=== PATIENT | male | born 1960 | race Caucasian/White ===

== ENCOUNTER 2017-08-20 09:20 | Inpatient (IN) | payer MEDICAID ==
[~2017-08-20] VITALS: Ht 175.3 cm; Wt 104.3 kg
[2017-08-20 09:20] VITALS: BP_SYST 150
[2017-08-20] MEDS ORDERED: HYDROcodone/ACETAMIN 10-325 MG TAB PO ONE (10:00)
[2017-08-20] MEDS ORDERED: IBUPROFEN 800 MG TABLET PO ONE (10:00)
[2017-08-20 10:02] LABS: BASOPHILS # (AUTO) 0.1 K/uL (0.0-0.2); BASOPHILS % (AUTO) 0.6 % (0.0-2.0); EOSINOPHILS # (AUTO) 0.4 K/uL (0.0-0.4); EOSINOPHILS % (AUTO) 3.6 % (0.0-4.0); HEMATOCRIT 52.6 % (36-54); HEMOGLOBIN 16.9 g/dL (14.0-18.0); LYMPHOCYTES # (AUTO) 1.9 K/uL (1.0-5.5); LYMPHOCYTES % (AUTO) 19.8 % (20.5-51.5); MEAN CORPUSCULAR HEMOGLOBIN 29 pg (27-31); MEAN CORPUSCULAR HGB CONC 32 % (32-36); MEAN CORPUSCULAR VOLUME 90 fL (79.0-98.0); MONOCYTES # (AUTO) 0.6 K/uL (0.0-1.0); MONOCYTES % (AUTO) 6.3 % (1.7-9.3); NEUTROPHILS # (AUTO) 6.8 K/uL (1.8-7.7); NEUTROPHILS % (AUTO) 69.7 % (40.0-70.0); PLATELET COUNT (AUTO) 261 K/uL (130-430); RED BLOOD CELL COUNT(AUTO) 5.83 MIL/uL (4.2-6.2); RED CELL DISTRIBUTION WIDTH 12.8 % (9.0-15.0); WHITE BLOOD COUNT (AUTO) 9.8 K/uL (4.8-10.8)
[2017-08-20 10:10] LABS: BILIRUBIN,URINE NEGATIVE (NEGATIVE); BLOOD, URINE NEGATIVE (NEGATIVE); CLARITY/URINE SL HAZY (CLEAR); COLOR,URINE YELLOW (YELLOW); GLUCOSE,URINE NEGATIVE (NEGATIVE); KETONES,URINE NEGATIVE (NEGATIVE); LEUKOCYTE ESTERASE ,URINE NEGATIVE (NEGATIVE); NITRITE, URINE NEGATIVE (NEGATIVE); PH,URINE 5.5 (5.0-8.0); PROTEIN URINE TRACE (NEGATIVE); UROBILINOGEN,URINE 0.2 (0.2-1.0)
[2017-08-20 10:17] LABS: CALCIUM 8.9 mg/dL (8.4-11.0); CREATININE 1.16 mg/dL (0.55-1.30); POTASSIUM 3.8 mmol/L (3.5-5.1)
[2017-08-20 10:22] LABS: ALBUMIN 4.2 g/dL (3.4-4.8); TOTAL BILIRUBIN 0.4 mg/dL (0.0-1.0)
[2017-08-20 10:33] LABS: INR 1.1 (0.80-1.20); PROTHROMBIN TIME 10.7 SECS (9.5-12.5)
[2017-08-20] MEDS ORDERED: PIPERACILLIN/TAZO 3.375 GM in NS 50 ML IV ONE (12:30)
[2017-08-20] MEDS ORDERED: PIPERACILLIN/TAZOBACTAM 3.375 GM/VIAL (ZOSYN) IV ONE (12:49)
[2017-08-20] MEDS ORDERED: ONDANSETRON HCL 4 MG/2 ML VIAL IVP ONE (13:00)
[2017-08-20] MEDS ORDERED: KETOROLAC TROMETHAMINE 30 MG VIAL IVP ONE (13:00)
[2017-08-20] MEDS ORDERED: D5/0.45 NS 1,000 ML IV ONE (13:30)
[2017-08-20] MEDS ORDERED: LEVOFLOXACIN 500 MG/D5W 100 ML IV ONE (13:30)
[2017-08-20 14:54] LABS: BASOPHILS # (AUTO) 0.1 K/uL (0.0-0.2); BASOPHILS % (AUTO) 0.6 % (0.0-2.0); EOSINOPHILS # (AUTO) 0.4 K/uL (0.0-0.4); EOSINOPHILS % (AUTO) 4.3 % (0.0-4.0); HEMATOCRIT 49.2 % (36-54); HEMOGLOBIN 16.1 g/dL (14.0-18.0); LYMPHOCYTES # (AUTO) 2.3 K/uL (1.0-5.5); LYMPHOCYTES % (AUTO) 26.9 % (20.5-51.5); MEAN CORPUSCULAR HEMOGLOBIN 29 pg (27-31); MEAN CORPUSCULAR HGB CONC 33 % (32-36); MEAN CORPUSCULAR VOLUME 89 fL (79.0-98.0); MONOCYTES # (AUTO) 0.7 K/uL (0.0-1.0); MONOCYTES % (AUTO) 7.6 % (1.7-9.3); NEUTROPHILS # (AUTO) 5.2 K/uL (1.8-7.7); NEUTROPHILS % (AUTO) 60.6 % (40.0-70.0); PLATELET COUNT (AUTO) 243 K/uL (130-430); RED BLOOD CELL COUNT(AUTO) 5.53 MIL/uL (4.2-6.2); RED CELL DISTRIBUTION WIDTH 12.8 % (9.0-15.0); WHITE BLOOD COUNT (AUTO) 8.7 K/uL (4.8-10.8)
[2017-08-20 14:59] LABS: CALCIUM 8.5 mg/dL (8.4-11.0); CREATININE 1.11 mg/dL (0.55-1.30); POTASSIUM 4.3 mmol/L (3.5-5.1)
[2017-08-20 15:04] LABS: ALBUMIN 3.8 g/dL (3.4-4.8); TOTAL BILIRUBIN 0.5 mg/dL (0.0-1.0)
[2017-08-20 15:15] VITALS: BP_SYST 168
[2017-08-20] MEDS ORDERED: cloNIDine HCL 0.1 MG TABLET PO PRN ×2 (16:00)
[2017-08-20 20:00] VITALS: BP_SYST 106
[2017-08-20] MEDS ORDERED: HYDROcodone/ACETAMIN 10-325 MG TAB PO SCH (20:00)
[2017-08-20] MEDS ORDERED: amLODIPine BESYLATE 10 MG TABLET PO SCH (20:00)
[2017-08-20] MEDS ORDERED: HYDR-4100 PO (21:21)
[2017-08-20] MEDS ORDERED: AMOX-426 PO (21:22)
[2017-08-20 21:30] VITALS: BP_SYST 147
[2017-08-20 21:47] VITALS: BP_SYST 147
== END 2017-08-20 22:05 | disposition home or self-care (01) | DRG 254 ==
LOC: SED 09:20 → SMU 13:28
DX: K37 Unspecified appendicitis (principal); I10 Essential (primary) hypertension; K40.90 Unilateral inguinal hernia, without obstruction or gangrene, not specified as recurrent; N43.2 Other hydrocele
CPT/HCPCS: 36415; 76870-TC; 80053; 81003; 82150-TC; 83690-TC; 85025; 85610-TC; 85730-TC; 96365; 99285; J1885; J1956; J2405; J2543

== ENCOUNTER 2017-08-23 11:11 | Emergency (ER) | payer MEDICAID ==
[~2017-08-23] VITALS: Ht 177.8 cm; Wt 104.3 kg
[~2017-08-23 11:11] MED LIST: AMOX-426 PO; HYDR-4100 PO
[2017-08-23 11:29] VITALS: BP_SYST 160
[2017-08-23] MEDS ORDERED: PIPERACILLIN/TAZO 3.38 GM in NS 50 ML IV ONE (12:00)
[2017-08-23 12:24] LABS: BASOPHILS # (AUTO) 0.1 K/uL (0.0-0.2); BASOPHILS % (AUTO) 1.8 % (0.0-2.0); EOSINOPHILS # (AUTO) 0.3 K/uL (0.0-0.4); EOSINOPHILS % (AUTO) 3.6 % (0.0-4.0); HEMATOCRIT 52.3 % (36-54); HEMOGLOBIN 17.1 g/dL (14.0-18.0); LYMPHOCYTES # (AUTO) 1.8 K/uL (1.0-5.5); LYMPHOCYTES % (AUTO) 22.9 % (20.5-51.5); MEAN CORPUSCULAR HEMOGLOBIN 29 pg (27-31); MEAN CORPUSCULAR HGB CONC 33 % (32-36); MEAN CORPUSCULAR VOLUME 89 fL (79.0-98.0); MONOCYTES # (AUTO) 0.5 K/uL (0.0-1.0); NEUTROPHILS # (AUTO) 5.3 K/uL (1.8-7.7); NEUTROPHILS % (AUTO) 65.7 % (40.0-70.0); PLATELET COUNT (AUTO) 266 K/uL (130-430); RED BLOOD CELL COUNT(AUTO) 5.89 MIL/uL (4.2-6.2); RED CELL DISTRIBUTION WIDTH 12.6 % (9.0-15.0)
[2017-08-23 12:48] LABS: INR 1.1 (0.80-1.20); PROTHROMBIN TIME 10.9 SECS (9.5-12.5)
[2017-08-23 12:51] LABS: CALCIUM 8.5 mg/dL (8.4-11.0); CREATININE 1.09 mg/dL (0.55-1.30); POTASSIUM 4.3 mmol/L (3.5-5.1)
[2017-08-23 12:55] LABS: ALBUMIN 4.1 g/dL (3.4-4.8); TOTAL BILIRUBIN 0.6 mg/dL (0.0-1.0)
[2017-08-23] MEDS ORDERED: PIPERACILLIN/TAZOBACTAM 3.375 GM/VIAL (ZOSYN) IV ONE (13:55)
[2017-08-23 14:00] VITALS: BP_SYST 154
[2017-08-23 14:11] LABS: BILIRUBIN,URINE NEGATIVE (NEGATIVE); BLOOD, URINE NEGATIVE (NEGATIVE); CLARITY/URINE CLEAR (CLEAR); COLOR,URINE YELLOW (YELLOW); GLUCOSE,URINE NEGATIVE (NEGATIVE); KETONES,URINE NEGATIVE (NEGATIVE); LEUKOCYTE ESTERASE ,URINE NEGATIVE (NEGATIVE); NITRITE, URINE NEGATIVE (NEGATIVE); PH,URINE 5.5 (5.0-8.0); PROTEIN URINE NEGATIVE (NEGATIVE); UROBILINOGEN,URINE 0.2 (0.2-1.0)
== END 2017-08-23 14:00 | disposition home or self-care (01) ==
LOC: SED 11:11
DX: R10.31 Right lower quadrant pain (principal); I10 Essential (primary) hypertension
CPT/HCPCS: 36415; 71010; 74176; 80053; 81003; 83605; 83690; 85025; 85610; 87040; 93005; 96365; 99285; J2543

== ENCOUNTER 2019-03-02 19:48 | Emergency (ER) | payer BC, MEDICAID ==
[~2019-03-02] VITALS: Ht 177.8 cm; Wt 90.7 kg
[2019-03-02 20:00] VITALS: BP_SYST 151
[2019-03-02] MEDS ORDERED: MORPHINE 4 MG/ML INJ. SYRINGE IVP ONE ×2 (21:15→22:00)
[2019-03-02] MEDS ORDERED: ONDANSETRON HCL 4 MG/2 ML VIAL IVP ONE (21:15)
[2019-03-02] MEDS ORDERED: NACL 0.9% 1,000 ML IV ONE (21:15)
[2019-03-02] MEDS ORDERED: KETOROLAC TROMETHAMINE 30 MG VIAL IVP ONE (22:30)
[2019-03-02 23:22] VITALS: BP_SYST 143
== END 2019-03-02 23:22 | disposition home or self-care (01) ==
LOC: SED 19:48
DX: S22.32XA Fracture of one rib, left side, initial encounter for closed fracture (principal); I10 Essential (primary) hypertension; W17.89XA Other fall from one level to another, initial encounter; Y93.89 Activity, other specified; Y92.89 Other specified places as the place of occurrence of the external cause; Y99.8 Other external cause status
CPT/HCPCS: 71045; 71100; 71250; 74176; 96374; 96375; 99284; J1885; J2270; J2405; J7030

== ENCOUNTER 2020-05-12 14:52 | Emergency (ER) | payer BC ==
[~2020-05-12] VITALS: Ht 177.8 cm; Wt 90.7 kg
--- NOTE | 2020-05-12 14:55 | NUR ---
Patient to ER bed 04 to gown for evaluation. Side rails up.
--- NOTE | 2020-05-12 14:57 | NUR ---
Patient arrived in the ED c/o Right groin pain with swollen and descended testes for a few months now. Denied any chest pain or shortness of breath. Denied any fevers, chills, nausea or vomiting. Patient is alert and oriented x4, respirations even and unlabored, speaking in full sentences, and ambulating with a steady gait. VSS, pain level 9/10. Informed of the approximate wait time. Instructed to notify ED staff for any changes in condition or worsening of symptoms while waiting to be seen by an ED provider. Patient verbalized understanding.
[2020-05-12 15:00] VITALS: BP_SYST 163
--- NOTE | 2020-05-12 15:14 | NUR ---
ER RM Arenas at bedside examining patient.
[2020-05-12] MEDS ORDERED: DIPHENHYDRAMINE INJ 50 MG/ML VIAL IVP ONE (15:30)
[2020-05-12] MEDS ORDERED: MORPHINE 4 MG/ML INJ. SYRINGE IVP ONE (15:30)
[2020-05-12] MEDS ORDERED: NACL 0.9% 1,000 ML IV ONE (15:30)
--- NOTE | 2020-05-12 15:34 | NUR ---
Ultrasound done at bedside as ordered by Dr. Arenas. Patient tolerated the procedure well.
--- NOTE | 2020-05-12 15:48 | NUR ---
Urine sample sent to lab as per MD order.
--- NOTE | 2020-05-12 15:59 | NUR ---
senior technical support engineer at bedside collecting blood specimen as ordered by Dr. Arenas. Patient tolerated the procedure well.
[2020-05-12 16:10] LABS: CLARITY/URINE CLEAR (CLEAR); COLOR,URINE YELLOW (YELLOW); GLUCOSE,URINE NEGATIVE (NEGATIVE); KETONES,URINE NEGATIVE (NEGATIVE); PH,URINE 6.5 (5.0-8.0); PROTEIN URINE NEGATIVE (NEGATIVE)
[2020-05-12 16:11] LABS: BILIRUBIN,URINE NEGATIVE (NEGATIVE); NITRITE, URINE NEGATIVE (NEGATIVE)
--- NOTE | 2020-05-12 16:35 | NUR ---
Patient is taken to CT via gurney, in stable condition.
[2020-05-12 16:38] LABS: BASOPHILS % (AUTO) 0.4 % (0.0-2.0); EOSINOPHILS # (AUTO) 0.2 K/uL (0.0-0.4); EOSINOPHILS % (AUTO) 1.8 % (0.0-4.0); HEMATOCRIT 50.2 % (36-54); HEMOGLOBIN 16.6 g/dL (14.0-18.0); LYMPHOCYTES # (AUTO) 1.8 K/uL (1.0-5.5); LYMPHOCYTES % (AUTO) 20.5 % (20.5-51.5); MEAN CORPUSCULAR HEMOGLOBIN 30 pg (27-31); MEAN CORPUSCULAR HGB CONC 33 % (32-36); MEAN CORPUSCULAR VOLUME 90 fL (79.0-98.0); MONOCYTES # (AUTO) 0.6 K/uL (0.0-1.0); MONOCYTES % (AUTO) 6.4 % (1.7-9.3); NEUTROPHILS # (AUTO) 6.1 K/uL (1.8-7.7); NEUTROPHILS % (AUTO) 70.9 % (40.0-70.0); PLATELET COUNT (AUTO) 235 K/uL (130-430); RED BLOOD CELL COUNT(AUTO) 5.59 MIL/uL (4.2-6.2); WHITE BLOOD COUNT (AUTO) 8.6 K/uL (4.8-10.8)
[2020-05-12] MEDS ORDERED: cefTRIAXone 1 GM IVPB PREMIX 50 ML IV ONE (16:45)
--- NOTE | 2020-05-12 16:45 | NUR ---
Patient is back from CT in stable condition.
[2020-05-12 16:53] LABS: CALCIUM 9.1 mg/dL (8.4-11.0); CREATININE 1.04 mg/dL (0.55-1.30); POTASSIUM 3.9 mmol/L (3.5-5.1)
[2020-05-12 16:59] LABS: ALBUMIN 3.6 g/dL (3.4-4.8); TOTAL BILIRUBIN 0.6 mg/dL (0.0-1.0)
[2020-05-12 17:08] LABS: BLOOD, URINE NEGATIVE (NEGATIVE); LEUKOCYTE ESTERASE ,URINE TRACE (NEGATIVE)
[2020-05-12 17:13] LABS: BACTERIA,URINE None Seen /HPF (None Seen); RBC,URINE NONE SEEN /HPF (0-3)
[2020-05-12] MEDS ORDERED: MORPHINE 2 MG/ML INJ. SYRINGE IVP ONE (17:45)
[2020-05-12 18:16] VITALS: BP_SYST 163
--- NOTE | 2020-05-12 18:16 | NUR ---
Patient given written and verbal discharge instructions and verbalizes understanding. ER MD discussed with patient the results and treatment provided. Patient in stable condition. ID arm band removed. IV catheter removed intact and dressing applied, no active bleeding. Rx of Doxycycline, [place] and Motrin given. Patient educated on pain management and to follow up with PMD. Pain Scale 0/10. Opportunity for questions provided and answered. Medication side effect fact sheet provided.
[2020-05-15 05:08] LABS: CHLAMYDIA TRACHOMATIS NAA Negative (Negative); NEISSERIA GONORRHOEAE NAA Negative (Negative)
== END 2020-05-12 18:16 | disposition home or self-care (01) ==
LOC: SED 14:52
DX: N45.1 Epididymitis (principal); K40.20 Bilateral inguinal hernia, without obstruction or gangrene, not specified as recurrent; N43.3 Hydrocele, unspecified; N39.0 Urinary tract infection, site not specified; I10 Essential (primary) hypertension; F17.210 Nicotine dependence, cigarettes, uncomplicated; Z79.899 Other long term (current) drug therapy; Z71.6 Tobacco abuse counseling
CPT/HCPCS: 36415; 74176; 76870; 80053; 81000; 83690; 85025; 87040; 87086; 87491; 87591; 96365; 96375; 96376; 99285; J0696; J1200; J2270 ×2; 81003

== ENCOUNTER 2021-07-08 11:28 | Inpatient (IN) | payer BC, SELFPAY ==
[~2021-07-08] VITALS: Ht 177.8 cm; Wt 111.1 kg
[~2021-07-08 11:28] MED LIST changes: +HYDR-3927 PO; -HYDR-4100 PO
[2021-07-08 11:34] VITALS: BP_SYST 162
[2021-07-08 11:47] LABS: BASOPHILS % (AUTO) 0.7 % (0.0-2.0); EOSINOPHILS # (AUTO) 0.3 K/uL (0.0-0.4); EOSINOPHILS % (AUTO) 3.9 % (0.0-4.0); HEMATOCRIT 48.6 % (36-54); HEMOGLOBIN 16.5 g/dL (14.0-18.0); LYMPHOCYTES # (AUTO) 2.3 K/uL (1.0-5.5); LYMPHOCYTES % (AUTO) 33.2 % (20.5-51.5); MEAN CORPUSCULAR HEMOGLOBIN 31 pg (27-31); MEAN CORPUSCULAR HGB CONC 34 % (32-36); MEAN CORPUSCULAR VOLUME 90 fL (79.0-98.0); MONOCYTES # (AUTO) 0.8 K/uL (0.0-1.0); MONOCYTES % (AUTO) 11.7 % (1.7-9.3); NEUTROPHILS # (AUTO) 3.5 K/uL (1.8-7.7); NEUTROPHILS % (AUTO) 50.5 % (40.0-70.0); PLATELET COUNT (AUTO) 213 K/uL (130-430); RED BLOOD CELL COUNT(AUTO) 5.39 MIL/uL (4.2-6.2); RED CELL DISTRIBUTION WIDTH 13.6 % (9.0-15.0)
[2021-07-08] MEDS ORDERED: IOHEXOL 350 mgI/mL, 150 ML INFUS..BTL IV ONE (11:52)
[2021-07-08] MEDS ORDERED: ASPIRIN 325 MG TABLET (ECOTRIN) PO ONE (12:00)
[2021-07-08 12:07] LABS: CREATININE 1.1 mg/dL (0.55-1.30); POTASSIUM 3.7 mmol/L (3.5-5.1)
[2021-07-08 12:11] LABS: INR 1.1 (0.80-1.20); PROTHROMBIN TIME 11.6 SECS (9.5-12.5)
[2021-07-08 12:12] LABS: ALBUMIN 3.5 g/dL (3.4-4.8); TOTAL BILIRUBIN 0.5 mg/dL (0.0-1.0)
[2021-07-08] MEDS ORDERED: cloNIDine HCL 0.1 MG TABLET PO ONE (13:00)
[2021-07-08] MEDS ORDERED: HYDROcodone/ACETAMIN 10-325 MG TAB PO ONE (13:00)
[2021-07-08] MEDS ORDERED: IBUPROFEN 800 MG TABLET PO ONE (13:00)
[2021-07-08 19:50] VITALS: BP_SYST 153
[2021-07-08 21:08] LABS: CHOLESTEROL 174 mg/dL (<200); HDL CHOLESTEROL 57 mg/dL (>45); LDL CHOLESTEROL 107 mg/dL (<100); TRIGLYCERIDES 57 mg/dL (30-150)
[2021-07-09] VITALS (15 sets, daily range): BP systolic 137–197
[2021-07-09] MEDS: ASPIRIN 325 MG TABLET (ECOTRIN) PO SCH (09:26)
[2021-07-09] MEDS: cloNIDine HCL 0.1 MG TABLET PO ONE ×2 (09:30→10:17)
[2021-07-09] MEDS ORDERED: NALOXONE HCL 0.4 MG/ML AMP (NARCAN) IVP PRN (09:30)
[2021-07-09] MEDS ORDERED: MORPHINE 2 MG/ML INJ. SYRINGE IVP ONE (09:30)
[2021-07-09] MEDS ORDERED: ENALAPRILAT DIHYDRATE 1.25 MG/ML VIAL IVP PRN (09:45)
[2021-07-09] MEDS ORDERED: hydrALAZINE HCL 20 MG/ML VIAL IVP PRN (09:45)
[2021-07-09] MEDS ORDERED: cloNIDine HCL 0.1 MG TABLET PO PRN (09:45)
[2021-07-09 11:21] LABS: BASOPHILS % (AUTO) 0.5 % (0.0-2.0); EOSINOPHILS # (AUTO) 0.2 K/uL (0.0-0.4); EOSINOPHILS % (AUTO) 2.3 % (0.0-4.0); HEMATOCRIT 49.6 % (36-54); HEMOGLOBIN 16.7 g/dL (14.0-18.0); LYMPHOCYTES # (AUTO) 1.7 K/uL (1.0-5.5); LYMPHOCYTES % (AUTO) 19.2 % (20.5-51.5); MEAN CORPUSCULAR HEMOGLOBIN 31 pg (27-31); MEAN CORPUSCULAR HGB CONC 34 % (32-36); MEAN CORPUSCULAR VOLUME 91 fL (79.0-98.0); MONOCYTES # (AUTO) 0.5 K/uL (0.0-1.0); MONOCYTES % (AUTO) 5.8 % (1.7-9.3); NEUTROPHILS # (AUTO) 6.4 K/uL (1.8-7.7); NEUTROPHILS % (AUTO) 72.2 % (40.0-70.0); PLATELET COUNT (AUTO) 194 K/uL (130-430); RED BLOOD CELL COUNT(AUTO) 5.46 MIL/uL (4.2-6.2); RED CELL DISTRIBUTION WIDTH 13.9 % (9.0-15.0); WHITE BLOOD COUNT (AUTO) 8.9 K/uL (4.8-10.8)
[2021-07-09 11:36] LABS: ALBUMIN 3.2 g/dL (3.4-4.8); CALCIUM 8.4 mg/dL (8.4-11.0); CREATININE 0.89 mg/dL (0.55-1.30); TOTAL BILIRUBIN 0.5 mg/dL (0.0-1.0)
[2021-07-09] MEDS ORDERED: ATROPINE SULFATE 1 MG/10 ML SYRINGE IVP ONE (12:33)
[2021-07-10] VITALS (20 sets, daily range): BP systolic 156–188
[2021-07-10] MEDS: D5NS 1,000 ML IV SCH ×3 (03:19→16:41)
[2021-07-10] MEDS: ASPIRIN 325 MG TABLET (ECOTRIN) PO SCH (08:16)
[2021-07-10] MEDS: ATORVASTATIN 20 MG TABLET PO SCH (10:10)
[2021-07-10] MEDS ORDERED: MANNITOL 25% 12.5GM/50 ML VIAL IVP ONE (15:45)
[2021-07-10] MEDS ORDERED: MANNITOL 25% 12.5GM/50 ML VIAL IV ONE (15:45)
[2021-07-10] MEDS ORDERED: MANNITOL 25%(12.5gm),50ML VIAL 50 ML ONE (19:26)
[2021-07-11] VITALS (25 sets, daily range): BP systolic 107–187
[2021-07-11] MEDS: ATORVASTATIN 20 MG TABLET PO SCH (06:21)
[2021-07-11] MEDS ORDERED: PANTOPRAZOLE SODIUM 40 MG/VIAL (PROTONIX) IVP SCH (09:00)
[2021-07-11] MEDS: ASPIRIN 325 MG TABLET (ECOTRIN) PO SCH (09:00)
[2021-07-11 09:05] LABS: BASOPHILS % (AUTO) 0.3 % (0.0-2.0); EOSINOPHILS # (AUTO) 0.1 K/uL (0.0-0.4); EOSINOPHILS % (AUTO) 0.9 % (0.0-4.0); HEMATOCRIT 46.5 % (36-54); HEMOGLOBIN 15.9 g/dL (14.0-18.0); LYMPHOCYTES # (AUTO) 1.1 K/uL (1.0-5.5); MEAN CORPUSCULAR HEMOGLOBIN 31 pg (27-31); MEAN CORPUSCULAR HGB CONC 34 % (32-36); MEAN CORPUSCULAR VOLUME 90 fL (79.0-98.0); MONOCYTES # (AUTO) 0.8 K/uL (0.0-1.0); MONOCYTES % (AUTO) 7.8 % (1.7-9.3); NEUTROPHILS # (AUTO) 8.3 K/uL (1.8-7.7); PLATELET COUNT (AUTO) 158 K/uL (130-430); RED BLOOD CELL COUNT(AUTO) 5.19 MIL/uL (4.2-6.2); RED CELL DISTRIBUTION WIDTH 13.5 % (9.0-15.0); WHITE BLOOD COUNT (AUTO) 10.3 K/uL (4.8-10.8)
[2021-07-11 09:27] LABS: CALCIUM 8.2 mg/dL (8.4-11.0); CREATININE 0.91 mg/dL (0.55-1.30); POTASSIUM 3.6 mmol/L (3.5-5.1)
[2021-07-11] MEDS: D5NS 1,000 ML IV SCH (09:59)
[2021-07-11] MEDS ORDERED: D5NS 1,000 ML IV SCH ×2 (11:15→21:00)
[2021-07-11] MEDS ORDERED: INSULIN REGULAR, HUMAN 100 UNITS/ML, 10 ML VIAL (humuLIN R) SUBCUT PRN (11:15)
[2021-07-11] MEDS ORDERED: *PPN PER PHARMACY XX PRN (11:15)
[2021-07-11] MEDS ORDERED: DEXTROSE 50% JECT 50 ML DISP.SYRIN IVP PRN (11:15)
[2021-07-11] MEDS ORDERED: ASPIRIN 600 MG/SUPP.RECT RC ONE (12:15)
[2021-07-11 12:32] LABS: PHOSPHORUS 3.1 mg/dL (2.7-4.5)
[2021-07-11 12:35] LABS: CHOLESTEROL 152 mg/dL (<200); HDL CHOLESTEROL 43 mg/dL (>45); LDL CHOLESTEROL 101 mg/dL (<100); TRIGLYCERIDES 103 mg/dL (30-150)
[2021-07-11] MEDS ORDERED: IOHEXOL 350 mgI/mL, 150 ML INFUS..BTL IV ONE (12:39)
[2021-07-11] MEDS: hydrALAZINE HCL 20 MG/ML VIAL IVP PRN (13:18)
[2021-07-11] MEDS ORDERED: ASPIRIN 300 MG/SUPP.RECT SUPP RC ONE (13:45)
[2021-07-11] MEDS ORDERED: levETIRAcetam 1,000 MG in NS 100 ML IV ONE (14:00)
[2021-07-11] MEDS: SODIUM CHLORIDE 3% *HI-ALERT* 500 ML IV SCH (16:04)
[2021-07-11] MEDS: THIAMINE HCL 100 MG in NS 50 ML IV SCH (16:06)
[2021-07-11] MEDS ORDERED: THIAMINE HCL 100 MG/ML VIAL ONE (16:06)
[2021-07-11 16:47] LABS: CALCIUM 8.3 mg/dL (8.4-11.0); CREATININE 0.91 mg/dL (0.55-1.30); POTASSIUM 3.4 mmol/L (3.5-5.1)
[2021-07-11] MEDS ORDERED: KCL 40 mEq in 100 mL (PREMIX) 100 ML IV ONE (17:30)
[2021-07-11] MEDS: levETIRAcetam 1,000 MG in NS 100 ML IV SCH (20:56)
[2021-07-11] MEDS: PANTOPRAZOLE SODIUM 40 MG/VIAL (PROTONIX) IVP SCH (20:57)
[2021-07-11] MEDS ORDERED: FAT EMULSIONS 250 ML IV SCH (21:00)
[2021-07-11] MEDS ORDERED: TRACE ELEMENTS IV SCH ×5 (21:00)
[2021-07-11] MEDS ORDERED: [UNRECOGNIZED DRUG - OTHER] IV SCH ×5 (21:00)
[2021-07-11] MEDS ORDERED: SODIUM ACETATE IV SCH ×5 (21:00)
[2021-07-11] MEDS ORDERED: TPN PERIPHERAL IV SCH ×5 (21:00)
[2021-07-11] MEDS: CLOPIDOGREL BISULFATE 75 MG TABLET PO SCH (22:00)
[2021-07-12] VITALS (24 sets, daily range): BP systolic 102–154
[2021-07-12] MEDS ORDERED: CLOPIDOGREL BISULFATE 75 MG TABLET ONE (00:25)
[2021-07-12] MEDS: ASPIRIN 325 MG TABLET (ECOTRIN) PO SCH (07:38)
[2021-07-12] MEDS: ATORVASTATIN 20 MG TABLET PO SCH (07:38)
[2021-07-12] MEDS: CLOPIDOGREL BISULFATE 75 MG TABLET PO SCH (07:38)
[2021-07-12 08:37] LABS: CALCIUM 8.5 mg/dL (8.4-11.0); CREATININE 0.89 mg/dL (0.55-1.30); POTASSIUM 3.7 mmol/L (3.5-5.1)
[2021-07-12 08:43] LABS: ALBUMIN 2.9 g/dL (3.4-4.8); TOTAL BILIRUBIN 0.9 mg/dL (0.0-1.0)
[2021-07-12] MEDS: PANTOPRAZOLE SODIUM 40 MG/VIAL (PROTONIX) IVP SCH ×2 (08:55→20:30)
[2021-07-12] MEDS: levETIRAcetam 1,000 MG in NS 100 ML IV SCH ×2 (08:56→20:30)
[2021-07-12] MEDS: ASPIRIN 300 MG/SUPP.RECT SUPP RC SCH (08:56)
[2021-07-12 09:08] LABS: CALCIUM 8.4 mg/dL (8.4-11.0); POTASSIUM 3.9 mmol/L (3.5-5.1)
[2021-07-12] MEDS: SODIUM CHLORIDE 3% *HI-ALERT* 500 ML IV SCH (15:32)
[2021-07-12] MEDS: THIAMINE HCL 100 MG in NS 50 ML IV SCH (15:33)
[2021-07-12 15:58] LABS: CALCIUM 8.3 mg/dL (8.4-11.0); CREATININE 0.98 mg/dL (0.55-1.30); POTASSIUM 3.8 mmol/L (3.5-5.1)
[2021-07-12 21:56] LABS: CALCIUM 8.6 mg/dL (8.4-11.0); CREATININE 1.02 mg/dL (0.55-1.30); POTASSIUM 3.6 mmol/L (3.5-5.1)
[2021-07-13] VITALS (24 sets, daily range): BP systolic 114–165
[2021-07-13 01:21] LABS: ALBUMIN 2.7 g/dL (3.4-4.8); CREATININE 0.98 mg/dL (0.55-1.30); POTASSIUM 3.6 mmol/L (3.5-5.1); TOTAL BILIRUBIN 0.9 mg/dL (0.0-1.0)
[2021-07-13] MEDS: SODIUM CHLORIDE 3% *HI-ALERT* 500 ML IV SCH (02:25)
[2021-07-13 07:02] LABS: BASOPHILS % (AUTO) 0.4 % (0.0-2.0); EOSINOPHILS # (AUTO) 0.3 K/uL (0.0-0.4); EOSINOPHILS % (AUTO) 2.9 % (0.0-4.0); HEMATOCRIT 45.6 % (36-54); HEMOGLOBIN 15.3 g/dL (14.0-18.0); LYMPHOCYTES # (AUTO) 1.7 K/uL (1.0-5.5); LYMPHOCYTES % (AUTO) 16.7 % (20.5-51.5); MEAN CORPUSCULAR HEMOGLOBIN 31 pg (27-31); MEAN CORPUSCULAR HGB CONC 34 % (32-36); MEAN CORPUSCULAR VOLUME 91 fL (79.0-98.0); MONOCYTES # (AUTO) 0.8 K/uL (0.0-1.0); MONOCYTES % (AUTO) 8.5 % (1.7-9.3); NEUTROPHILS # (AUTO) 7.1 K/uL (1.8-7.7); NEUTROPHILS % (AUTO) 71.5 % (40.0-70.0); PLATELET COUNT (AUTO) 120 K/uL (130-430); RED BLOOD CELL COUNT(AUTO) 5.01 MIL/uL (4.2-6.2); RED CELL DISTRIBUTION WIDTH 13.3 % (9.0-15.0)
[2021-07-13] MEDS: ASPIRIN 325 MG TABLET (ECOTRIN) PO SCH (09:00)
[2021-07-13] MEDS: CLOPIDOGREL BISULFATE 75 MG TABLET PO SCH (09:00)
[2021-07-13] MEDS: ATORVASTATIN 20 MG TABLET PO SCH ×2 (09:00→10:10)
[2021-07-13 09:12] LABS: POTASSIUM 3.7 mmol/L (3.5-5.1)
[2021-07-13 09:13] LABS: CALCIUM 8.2 mg/dL (8.4-11.0); CREATININE 0.9 mg/dL (0.55-1.30)
[2021-07-13] MEDS: PANTOPRAZOLE SODIUM 40 MG/VIAL (PROTONIX) IVP SCH ×2 (09:48→21:33)
[2021-07-13] MEDS: ASPIRIN 300 MG/SUPP.RECT SUPP RC SCH (09:48)
[2021-07-13] MEDS: levETIRAcetam 1,000 MG in NS 100 ML IV SCH ×2 (09:48→21:32)
[2021-07-13 12:49] LABS: CALCIUM 8.1 mg/dL (8.4-11.0); CREATININE 0.96 mg/dL (0.55-1.30); POTASSIUM 3.7 mmol/L (3.5-5.1)
[2021-07-13] MEDS ORDERED: *PPN PER PHARMACY XX PRN (14:15)
[2021-07-13] MEDS ORDERED: *LOVENOX 1MG/KG Q12H/PHARMACY XX ONE (15:00)
[2021-07-13] MEDS: THIAMINE HCL 100 MG in NS 50 ML IV SCH (16:16)
[2021-07-13] MEDS: ENOXAPARIN SODIUM 120 MG/0.8 ML SYRINGE SUBCUT SCH (19:10)
[2021-07-13 20:30] LABS: CALCIUM 8.4 mg/dL (8.4-11.0); CREATININE 0.95 mg/dL (0.55-1.30); POTASSIUM 3.8 mmol/L (3.5-5.1)
[2021-07-13] MEDS: D5NS 1,000 ML IV SCH (21:29)
[2021-07-14] VITALS (17 sets, daily range): BP systolic 132–177
[2021-07-14] MEDS: hydrALAZINE HCL 20 MG/ML VIAL IVP PRN (00:33)
[2021-07-14] MEDS: SODIUM CHLORIDE 3% *HI-ALERT* 500 ML IV SCH ×2 (02:56→23:36)
[2021-07-14 06:13] LABS: BASOPHILS % (AUTO) 0.5 % (0.0-2.0); EOSINOPHILS # (AUTO) 0.2 K/uL (0.0-0.4); HEMATOCRIT 43.9 % (36-54); LYMPHOCYTES # (AUTO) 1.2 K/uL (1.0-5.5); MEAN CORPUSCULAR HEMOGLOBIN 31 pg (27-31); MEAN CORPUSCULAR HGB CONC 34 % (32-36); MEAN CORPUSCULAR VOLUME 90 fL (79.0-98.0); MONOCYTES # (AUTO) 0.7 K/uL (0.0-1.0); MONOCYTES % (AUTO) 7.3 % (1.7-9.3); NEUTROPHILS # (AUTO) 6.9 K/uL (1.8-7.7); NEUTROPHILS % (AUTO) 77.2 % (40.0-70.0); PLATELET COUNT (AUTO) 126 K/uL (130-430); RED CELL DISTRIBUTION WIDTH 13.2 % (9.0-15.0); WHITE BLOOD COUNT (AUTO) 8.9 K/uL (4.8-10.8)
[2021-07-14] MEDS: ENOXAPARIN SODIUM 120 MG/0.8 ML SYRINGE SUBCUT SCH ×2 (06:19→19:01)
[2021-07-14 06:28] LABS: ALBUMIN 2.9 g/dL (3.4-4.8); CREATININE 1.16 mg/dL (0.55-1.30); PHOSPHORUS 2.9 mg/dL (2.7-4.5); POTASSIUM 3.5 mmol/L (3.5-5.1); TOTAL BILIRUBIN 0.9 mg/dL (0.0-1.0)
[2021-07-14] MEDS: ASPIRIN 325 MG TABLET (ECOTRIN) PO SCH (09:00)
[2021-07-14] MEDS: ATORVASTATIN 20 MG TABLET PO SCH (09:15)
[2021-07-14] MEDS: ASPIRIN 300 MG/SUPP.RECT SUPP RC SCH (09:17)
[2021-07-14] MEDS: levETIRAcetam 1,000 MG in NS 100 ML IV SCH ×2 (09:17→20:42)
[2021-07-14] MEDS: PANTOPRAZOLE SODIUM 40 MG/VIAL (PROTONIX) IVP SCH ×2 (09:17→20:42)
[2021-07-14] MEDS: D5NS 1,000 ML IV SCH (12:14)
[2021-07-14] MEDS: THIAMINE HCL 100 MG in NS 50 ML IV SCH (17:36)
[2021-07-14 19:13] LABS: CALCIUM 7.7 mg/dL (8.4-11.0); CREATININE 0.92 mg/dL (0.55-1.30); POTASSIUM 3.4 mmol/L (3.5-5.1)
[2021-07-14] MEDS ORDERED: FAT EMULSIONS 250 ML IV SCH (21:00)
[2021-07-14] MEDS ORDERED: TPN PERIPHERAL 0.0001 ML, SODIUM ACETATE 40 MEQ, POTASSIUM CHLORIDE 20 MEQ, K PHOS 9 MM... IV SCH ×9 (21:00)
[2021-07-15] VITALS (24 sets, daily range): BP systolic 133–168
[2021-07-15] MEDS: D5NS 1,000 ML IV SCH ×3 (04:03→21:19)
[2021-07-15] MEDS ORDERED: MORPHINE 2 MG/ML INJ. SYRINGE IVP ONE ×2 (04:15)
[2021-07-15] MEDS: ENOXAPARIN SODIUM 120 MG/0.8 ML SYRINGE SUBCUT SCH ×2 (04:18→16:34)
[2021-07-15 06:34] LABS: BASOPHILS % (AUTO) 0.4 % (0.0-2.0); EOSINOPHILS # (AUTO) 0.2 K/uL (0.0-0.4); EOSINOPHILS % (AUTO) 2.4 % (0.0-4.0); HEMATOCRIT 42.2 % (36-54); HEMOGLOBIN 14.4 g/dL (14.0-18.0); LYMPHOCYTES # (AUTO) 1.2 K/uL (1.0-5.5); LYMPHOCYTES % (AUTO) 13.8 % (20.5-51.5); MEAN CORPUSCULAR HEMOGLOBIN 31 pg (27-31); MEAN CORPUSCULAR HGB CONC 34 % (32-36); MEAN CORPUSCULAR VOLUME 89 fL (79.0-98.0); MONOCYTES # (AUTO) 0.7 K/uL (0.0-1.0); MONOCYTES % (AUTO) 7.8 % (1.7-9.3); NEUTROPHILS # (AUTO) 6.8 K/uL (1.8-7.7); NEUTROPHILS % (AUTO) 75.6 % (40.0-70.0); PLATELET COUNT (AUTO) 143 K/uL (130-430); RED BLOOD CELL COUNT(AUTO) 4.72 MIL/uL (4.2-6.2); RED CELL DISTRIBUTION WIDTH 13.3 % (9.0-15.0)
[2021-07-15 08:00] LABS: ALBUMIN 2.6 g/dL (3.4-4.8); CALCIUM 8.1 mg/dL (8.4-11.0); CREATININE 0.79 mg/dL (0.55-1.30); PHOSPHORUS 2.8 mg/dL (2.7-4.5); POTASSIUM 3.3 mmol/L (3.5-5.1); TOTAL BILIRUBIN 0.9 mg/dL (0.0-1.0)
[2021-07-15] MEDS: ASPIRIN 81 MG TAB.CHEW PO SCH (09:12)
[2021-07-15] MEDS: ATORVASTATIN 20 MG TABLET PO SCH (09:12)
[2021-07-15] MEDS: levETIRAcetam 1,000 MG in NS 100 ML IV SCH ×2 (09:13→21:11)
[2021-07-15] MEDS: PANTOPRAZOLE SODIUM 40 MG/VIAL (PROTONIX) IVP SCH ×2 (09:13→21:11)
[2021-07-15] MEDS: hydrALAZINE HCL 25 MG TABLET PO SCH ×2 (09:13→21:12)
[2021-07-15] MEDS: THIAMINE HCL 100 MG in NS 50 ML IV SCH (14:46)
[2021-07-15 18:06] LABS: ANTITHROMBIN III ACTIVITY 98 % (75-135); PROTEIN S ACTIVITY 107 % (63-140)
[2021-07-16] VITALS (9 sets, daily range): BP systolic 133–151
[2021-07-16] MEDS ORDERED: MORPHINE 2 MG/ML INJ. SYRINGE IVP ONE (05:45)
[2021-07-16] MEDS ORDERED: NALOXONE HCL 0.4 MG/ML AMP (NARCAN) IVP PRN (05:45)
[2021-07-16] MEDS: ENOXAPARIN SODIUM 120 MG/0.8 ML SYRINGE SUBCUT SCH ×2 (06:02→17:48)
[2021-07-16] MEDS ORDERED: *PPN PER PHARMACY XX PRN (07:30)
[2021-07-16] MEDS ORDERED: DEXTROSE 50% JECT 50 ML DISP.SYRIN IVP PRN (07:30)
[2021-07-16] MEDS ORDERED: INSULIN REGULAR, HUMAN 100 UNITS/ML, 10 ML VIAL (humuLIN R) SUBCUT PRN (07:30)
[2021-07-16] MEDS: PANTOPRAZOLE SODIUM 40 MG/VIAL (PROTONIX) IVP SCH ×2 (08:47→21:57)
[2021-07-16] MEDS: ASPIRIN 81 MG TAB.CHEW PO SCH (08:47)
[2021-07-16] MEDS: ATORVASTATIN 20 MG TABLET PO SCH (08:48)
[2021-07-16] MEDS: hydrALAZINE HCL 25 MG TABLET PO SCH ×2 (08:48→21:57)
[2021-07-16] MEDS: levETIRAcetam 1,000 MG in NS 100 ML IV SCH ×2 (08:49→21:56)
[2021-07-16 12:00] LABS: POTASSIUM 3.6 mmol/L (3.5-5.1)
[2021-07-16 12:01] LABS: CALCIUM 8.1 mg/dL (8.4-11.0); CREATININE 0.91 mg/dL (0.55-1.30); TOTAL BILIRUBIN 0.8 mg/dL (0.0-1.0)
[2021-07-16 12:02] LABS: ALBUMIN 2.5 g/dL (3.4-4.8)
[2021-07-16 13:06] LABS: ATYPICAL pANCA <1:20 titer (Neg:<1:20); CYTOPLASMIC (C-ANCA) <1:20 titer (Neg:<1:20); CYTOPLASMIC (P-ANCA) <1:20 titer (Neg:<1:20)
[2021-07-16] MEDS: D5NS 1,000 ML IV SCH (13:27)
[2021-07-16] MEDS: THIAMINE HCL 100 MG in NS 50 ML IV SCH (14:16)
[2021-07-16 15:35] LABS: HEMATOCRIT 40.9 % (36-54); HEMOGLOBIN 13.7 g/dL (14.0-18.0); MEAN CORPUSCULAR HEMOGLOBIN 30 pg (27-31); MEAN CORPUSCULAR HGB CONC 34 % (32-36); MEAN CORPUSCULAR VOLUME 90 fL (79.0-98.0); PLATELET COUNT (AUTO) 147 K/uL (130-430); RED BLOOD CELL COUNT(AUTO) 4.53 MIL/uL (4.2-6.2); RED CELL DISTRIBUTION WIDTH 13.4 % (9.0-15.0)
[2021-07-16 15:36] LABS: BASOPHILS % (AUTO) 0.6 % (0.0-2.0); EOSINOPHILS # (AUTO) 0.4 K/uL (0.0-0.4); EOSINOPHILS % (AUTO) 4.8 % (0.0-4.0); LYMPHOCYTES # (AUTO) 1.7 K/uL (1.0-5.5); LYMPHOCYTES % (AUTO) 20.7 % (20.5-51.5); MONOCYTES # (AUTO) 0.8 K/uL (0.0-1.0); MONOCYTES % (AUTO) 9.4 % (1.7-9.3); NEUTROPHILS # (AUTO) 5.1 K/uL (1.8-7.7); NEUTROPHILS % (AUTO) 64.5 % (40.0-70.0)
[2021-07-16] MEDS ORDERED: TPN PERIPHERAL 0.0001 ML, SODIUM ACETATE 40 MEQ, POTASSIUM ACETATE 20 MEQ, K PHOS 9 MM,... IV SCH ×9 (21:00)
[2021-07-16] MEDS ORDERED: FAT EMULSIONS 250 ML IV SCH (21:00)
[2021-07-17 06:04] VITALS: BP_SYST 133
[2021-07-17] MEDS: ENOXAPARIN SODIUM 120 MG/0.8 ML SYRINGE SUBCUT SCH (06:14)
[2021-07-17 07:14] LABS: BASOPHILS % (AUTO) 0.5 % (0.0-2.0); EOSINOPHILS # (AUTO) 0.4 K/uL (0.0-0.4); HEMATOCRIT 39.3 % (36-54); HEMOGLOBIN 13.6 g/dL (14.0-18.0); LYMPHOCYTES # (AUTO) 1.2 K/uL (1.0-5.5); LYMPHOCYTES % (AUTO) 16.7 % (20.5-51.5); MEAN CORPUSCULAR HEMOGLOBIN 31 pg (27-31); MEAN CORPUSCULAR HGB CONC 35 % (32-36); MEAN CORPUSCULAR VOLUME 88 fL (79.0-98.0); MONOCYTES # (AUTO) 0.6 K/uL (0.0-1.0); MONOCYTES % (AUTO) 7.7 % (1.7-9.3); NEUTROPHILS # (AUTO) 5.2 K/uL (1.8-7.7); NEUTROPHILS % (AUTO) 70.1 % (40.0-70.0); PLATELET COUNT (AUTO) 167 K/uL (130-430); RED BLOOD CELL COUNT(AUTO) 4.46 MIL/uL (4.2-6.2); RED CELL DISTRIBUTION WIDTH 13.1 % (9.0-15.0); WHITE BLOOD COUNT (AUTO) 7.5 K/uL (4.8-10.8)
[2021-07-17] MEDS: ATORVASTATIN 20 MG TABLET PO SCH (08:17)
[2021-07-17] MEDS: levETIRAcetam 1,000 MG in NS 100 ML IV SCH ×2 (08:18→21:53)
[2021-07-17] MEDS: hydrALAZINE HCL 25 MG TABLET PO SCH ×2 (08:18→21:52)
[2021-07-17] MEDS: ASPIRIN 81 MG TAB.CHEW PO SCH (08:18)
[2021-07-17 08:20] VITALS: BP_SYST 158
[2021-07-17] MEDS: PANTOPRAZOLE SODIUM 40 MG/VIAL (PROTONIX) IVP SCH ×2 (08:42→21:52)
[2021-07-17] MEDS: D5NS 1,000 ML IV SCH ×2 (10:33→23:28)
[2021-07-17 12:15] VITALS: BP_SYST 168
[2021-07-17] MEDS: THIAMINE HCL 100 MG in NS 50 ML IV SCH (15:16)
[2021-07-17] MEDS: metroNIDAZOLE 500 MG TABLET PO SCH ×2 (15:16→21:52)
[2021-07-17 16:00] VITALS: BP_SYST 139
[2021-07-17 20:00] VITALS: BP_SYST 204
[2021-07-17] MEDS: hydrALAZINE HCL 20 MG/ML VIAL IVP PRN (20:27)
[2021-07-17] MEDS: MORPHINE 2 MG/ML INJ. SYRINGE IVP PRN (20:37)
[2021-07-17] MEDS ORDERED: HYDROmorphone 1 MG/ML INJ. CARTRIDGE IVP ONE (22:30)
[2021-07-18] VITALS (7 sets, daily range): BP systolic 135–198
[2021-07-18] MEDS: MORPHINE 2 MG/ML INJ. SYRINGE IVP PRN ×3 (03:36→18:25)
[2021-07-18] MEDS: hydrALAZINE HCL 20 MG/ML VIAL IVP PRN (05:20)
[2021-07-18] MEDS: metroNIDAZOLE 500 MG TABLET PO SCH ×3 (06:13→21:31)
[2021-07-18] MEDS ORDERED: HYDROmorphone 1 MG/ML INJ. CARTRIDGE IVP ONE (07:15)
[2021-07-18] MEDS: hydrALAZINE HCL 25 MG TABLET PO SCH ×2 (09:39→21:31)
[2021-07-18] MEDS: ATORVASTATIN 20 MG TABLET PO SCH (09:39)
[2021-07-18] MEDS: ASPIRIN 81 MG TAB.CHEW PO SCH (09:40)
[2021-07-18 09:42] LABS: BASOPHILS # (AUTO) 0.1 K/uL (0.0-0.2); BASOPHILS % (AUTO) 0.7 % (0.0-2.0); EOSINOPHILS # (AUTO) 0.3 K/uL (0.0-0.4); EOSINOPHILS % (AUTO) 3.1 % (0.0-4.0); HEMATOCRIT 43.8 % (36-54); HEMOGLOBIN 14.6 g/dL (14.0-18.0); LYMPHOCYTES # (AUTO) 1.7 K/uL (1.0-5.5); LYMPHOCYTES % (AUTO) 17.7 % (20.5-51.5); MEAN CORPUSCULAR HEMOGLOBIN 30 pg (27-31); MEAN CORPUSCULAR HGB CONC 33 % (32-36); MEAN CORPUSCULAR VOLUME 91 fL (79.0-98.0); MONOCYTES # (AUTO) 0.9 K/uL (0.0-1.0); MONOCYTES % (AUTO) 9.6 % (1.7-9.3); NEUTROPHILS # (AUTO) 6.5 K/uL (1.8-7.7); NEUTROPHILS % (AUTO) 68.9 % (40.0-70.0); PLATELET COUNT (AUTO) 197 K/uL (130-430); RED BLOOD CELL COUNT(AUTO) 4.82 MIL/uL (4.2-6.2); RED CELL DISTRIBUTION WIDTH 13.2 % (9.0-15.0); WHITE BLOOD COUNT (AUTO) 9.4 K/uL (4.8-10.8)
[2021-07-18] MEDS: PANTOPRAZOLE SODIUM 40 MG/VIAL (PROTONIX) IVP SCH ×2 (11:36→21:28)
[2021-07-18] MEDS: levETIRAcetam 1,000 MG in NS 100 ML IV SCH ×2 (11:39→21:30)
[2021-07-18] MEDS: D5NS 1,000 ML IV SCH (12:49)
[2021-07-18] MEDS ORDERED: *LOVENOX 1MG/KG Q12H/PHARMACY XX ONE (14:15)
[2021-07-18] MEDS ORDERED: ENOXAPARIN SODIUM 100 MG/ML SYRINGE SUBCUT ONE (14:30)
[2021-07-18] MEDS: THIAMINE HCL 100 MG in NS 50 ML IV SCH (15:30)
[2021-07-19] VITALS: BP_SYST 159
[2021-07-19] MEDS: D5NS 1,000 ML IV SCH ×2 (05:29→20:52)
[2021-07-19] MEDS: metroNIDAZOLE 500 MG TABLET PO SCH ×3 (05:29→21:26)
[2021-07-19] MEDS: MORPHINE 2 MG/ML INJ. SYRINGE IVP PRN ×3 (05:31→20:50)
[2021-07-19 08:37] LABS: BASOPHILS # (AUTO) 0.1 K/uL (0.0-0.2); EOSINOPHILS # (AUTO) 0.4 K/uL (0.0-0.4); HEMATOCRIT 39.6 % (36-54); HEMOGLOBIN 13.2 g/dL (14.0-18.0); LYMPHOCYTES # (AUTO) 1.6 K/uL (1.0-5.5); LYMPHOCYTES % (AUTO) 18.4 % (20.5-51.5); MEAN CORPUSCULAR HEMOGLOBIN 30 pg (27-31); MEAN CORPUSCULAR HGB CONC 33 % (32-36); MEAN CORPUSCULAR VOLUME 89 fL (79.0-98.0); MONOCYTES # (AUTO) 0.9 K/uL (0.0-1.0); MONOCYTES % (AUTO) 10.2 % (1.7-9.3); NEUTROPHILS # (AUTO) 5.6 K/uL (1.8-7.7); NEUTROPHILS % (AUTO) 65.4 % (40.0-70.0); PLATELET COUNT (AUTO) 229 K/uL (130-430); RED BLOOD CELL COUNT(AUTO) 4.44 MIL/uL (4.2-6.2); RED CELL DISTRIBUTION WIDTH 13.2 % (9.0-15.0); WHITE BLOOD COUNT (AUTO) 8.5 K/uL (4.8-10.8)
[2021-07-19] MEDS: ATORVASTATIN 20 MG TABLET PO SCH (11:01)
[2021-07-19] MEDS: ASPIRIN 81 MG TAB.CHEW PO SCH (11:02)
[2021-07-19] MEDS: PANTOPRAZOLE SODIUM 40 MG/VIAL (PROTONIX) IVP SCH ×2 (11:03→20:47)
[2021-07-19] MEDS: levETIRAcetam 1,000 MG in NS 100 ML IV SCH ×2 (11:04→20:48)
[2021-07-19] MEDS: hydrALAZINE HCL 25 MG TABLET PO SCH ×2 (11:08→20:48)
[2021-07-19] MEDS: ENOXAPARIN SODIUM 100 MG/ML SYRINGE SUBCUT SCH ×2 (11:14→20:49)
[2021-07-19 12:33] VITALS: BP_SYST 147
[2021-07-19] MEDS: THIAMINE HCL 100 MG in NS 50 ML IV SCH (16:30)
[2021-07-19 17:45] VITALS: BP_SYST 140
[2021-07-19 20:00] VITALS: BP_SYST 137
[2021-07-20 00:31] VITALS: BP_SYST 137
[2021-07-20] MEDS: MORPHINE 2 MG/ML INJ. SYRINGE IVP PRN ×4 (02:05→18:29)
[2021-07-20] MEDS: metroNIDAZOLE 500 MG TABLET PO SCH ×3 (05:57→22:46)
[2021-07-20 08:00] VITALS: BP_SYST 159
[2021-07-20] MEDS: ATORVASTATIN 20 MG TABLET PO SCH (08:53)
[2021-07-20] MEDS: ASPIRIN 81 MG TAB.CHEW PO SCH (08:53)
[2021-07-20] MEDS: ENOXAPARIN SODIUM 100 MG/ML SYRINGE SUBCUT SCH ×2 (08:54→22:47)
[2021-07-20] MEDS: levETIRAcetam 1,000 MG in NS 100 ML IV SCH ×2 (08:57→22:45)
[2021-07-20] MEDS: PANTOPRAZOLE SODIUM 40 MG TAB PO SCH (09:01)
[2021-07-20] MEDS: hydrALAZINE HCL 25 MG TABLET PO SCH ×2 (09:01→22:46)
[2021-07-20] MEDS: D5NS 1,000 ML IV SCH ×2 (09:03→22:57)
[2021-07-20 11:31] VITALS: BP_SYST 155
[2021-07-20] MEDS: THIAMINE HCL 100 MG in NS 50 ML IV SCH (13:25)
[2021-07-20 15:26] VITALS: BP_SYST 127
[2021-07-20 19:00] VITALS: BP_SYST 128
[2021-07-21] VITALS: BP_SYST 145
[2021-07-21 04:00] VITALS: BP_SYST 140
[2021-07-21] MEDS: metroNIDAZOLE 500 MG TABLET PO SCH ×3 (05:52→21:57)
[2021-07-21 08:56] LABS: BASOPHILS # (AUTO) 0.1 K/uL (0.0-0.2); BASOPHILS % (AUTO) 0.6 % (0.0-2.0); EOSINOPHILS # (AUTO) 0.4 K/uL (0.0-0.4); EOSINOPHILS % (AUTO) 4.3 % (0.0-4.0); HEMATOCRIT 43.9 % (36-54); HEMOGLOBIN 14.6 g/dL (14.0-18.0); LYMPHOCYTES # (AUTO) 1.6 K/uL (1.0-5.5); LYMPHOCYTES % (AUTO) 16.5 % (20.5-51.5); MEAN CORPUSCULAR HEMOGLOBIN 30 pg (27-31); MEAN CORPUSCULAR HGB CONC 33 % (32-36); MEAN CORPUSCULAR VOLUME 91 fL (79.0-98.0); MONOCYTES # (AUTO) 0.9 K/uL (0.0-1.0); MONOCYTES % (AUTO) 8.7 % (1.7-9.3); NEUTROPHILS # (AUTO) 6.9 K/uL (1.8-7.7); NEUTROPHILS % (AUTO) 69.9 % (40.0-70.0); PLATELET COUNT (AUTO) 257 K/uL (130-430); RED BLOOD CELL COUNT(AUTO) 4.85 MIL/uL (4.2-6.2); RED CELL DISTRIBUTION WIDTH 13.4 % (9.0-15.0); WHITE BLOOD COUNT (AUTO) 9.9 K/uL (4.8-10.8)
[2021-07-21] MEDS: ENOXAPARIN SODIUM 100 MG/ML SYRINGE SUBCUT SCH ×2 (09:00→21:03)
[2021-07-21 09:33] VITALS: BP_SYST 149
[2021-07-21] MEDS: ASPIRIN 81 MG TAB.CHEW PO SCH (09:46)
[2021-07-21] MEDS: ATORVASTATIN 20 MG TABLET PO SCH (09:46)
[2021-07-21] MEDS: PANTOPRAZOLE SODIUM 40 MG TAB PO SCH (09:47)
[2021-07-21] MEDS: hydrALAZINE HCL 25 MG TABLET PO SCH ×2 (09:49→20:59)
[2021-07-21] MEDS: levETIRAcetam 1,000 MG in NS 100 ML IV SCH ×2 (09:53→20:59)
[2021-07-21 11:18] VITALS: BP_SYST 160
[2021-07-21 15:17] VITALS: BP_SYST 143
[2021-07-21] MEDS: D5NS 1,000 ML IV SCH (15:57)
[2021-07-21] MEDS: THIAMINE HCL 100 MG in NS 50 ML IV SCH (16:13)
[2021-07-21 20:49] VITALS: BP_SYST 139
[2021-07-21] MEDS: MORPHINE 2 MG/ML INJ. SYRINGE IVP PRN (20:58)
[2021-07-22 01:44] VITALS: BP_SYST 115
[2021-07-22] MEDS: D5NS 1,000 ML IV SCH ×2 (05:21→13:11)
[2021-07-22] MEDS: metroNIDAZOLE 500 MG TABLET PO SCH ×3 (06:53→21:23)
[2021-07-22 08:00] VITALS: BP_SYST 144
[2021-07-22] MEDS: hydrALAZINE HCL 25 MG TABLET PO SCH ×2 (09:01→20:53)
[2021-07-22] MEDS: ATORVASTATIN 20 MG TABLET PO SCH (09:01)
[2021-07-22] MEDS: ASPIRIN 81 MG TAB.CHEW PO SCH (09:02)
[2021-07-22] MEDS: levETIRAcetam 1,000 MG in NS 100 ML IV SCH ×2 (09:02→21:18)
[2021-07-22] MEDS: PANTOPRAZOLE SODIUM 40 MG TAB PO SCH (09:02)
[2021-07-22] MEDS: ENOXAPARIN SODIUM 100 MG/ML SYRINGE SUBCUT SCH ×2 (09:03→21:17)
[2021-07-22 10:12] LABS: ALBUMIN 2.2 g/dL (3.4-4.8); CALCIUM 8.6 mg/dL (8.4-11.0); CREATININE 0.92 mg/dL (0.55-1.30); POTASSIUM 3.7 mmol/L (3.5-5.1); TOTAL BILIRUBIN 0.4 mg/dL (0.0-1.0)
[2021-07-22 11:26] VITALS: BP_SYST 120
[2021-07-22] MEDS: MORPHINE 2 MG/ML INJ. SYRINGE IVP PRN ×3 (11:55→20:52)
[2021-07-22] MEDS: THIAMINE HCL 100 MG in NS 50 ML IV SCH (13:11)
[2021-07-22 15:39] VITALS: BP_SYST 137
[2021-07-22 20:00] VITALS: BP_SYST 141
[2021-07-23] VITALS: BP_SYST 150
[2021-07-23] MEDS: MORPHINE 2 MG/ML INJ. SYRINGE IVP PRN ×3 (00:44→13:10)
[2021-07-23] MEDS: metroNIDAZOLE 500 MG TABLET PO SCH (06:30)
[2021-07-23 08:00] VITALS: BP_SYST 135
[2021-07-23] MEDS: ATORVASTATIN 20 MG TABLET PO SCH (08:53)
[2021-07-23] MEDS: PANTOPRAZOLE SODIUM 40 MG TAB PO SCH (08:53)
[2021-07-23] MEDS: ASPIRIN 81 MG TAB.CHEW PO SCH (08:53)
[2021-07-23] MEDS: ENOXAPARIN SODIUM 100 MG/ML SYRINGE SUBCUT SCH ×2 (08:56→22:36)
[2021-07-23] MEDS: levETIRAcetam 1,000 MG in NS 100 ML IV SCH ×2 (08:57→22:31)
[2021-07-23] MEDS: D5NS 1,000 ML IV SCH ×2 (08:59→22:31)
[2021-07-23] MEDS: hydrALAZINE HCL 25 MG TABLET PO SCH ×2 (09:10→21:00)
[2021-07-23 11:28] VITALS: BP_SYST 140
[2021-07-23] MEDS ORDERED: ONDANSETRON HCL 4 MG/2 ML VIAL IVP PRN (14:30)
[2021-07-23] MEDS: THIAMINE HCL 100 MG in NS 50 ML IV SCH (14:42)
[2021-07-23 16:01] VITALS: BP_SYST 136
[2021-07-23] MEDS ORDERED: POLYETHYLENE GLYCOL 3350, 17 GM/ POWD.PACK PO ONE (16:15)
[2021-07-23] MEDS: HYDROcodone/ACETAMIN 5-325 MG TAB (NORCO/ VICODIN) PO PRN ×2 (17:05→23:03)
[2021-07-23 20:30] VITALS: BP_SYST 96
[2021-07-24 01:00] VITALS: BP_SYST 136
[2021-07-24] MEDS: HYDROcodone/ACETAMIN 5-325 MG TAB (NORCO/ VICODIN) PO PRN ×3 (05:23→19:07)
[2021-07-24] MEDS: ATORVASTATIN 20 MG TABLET PO SCH (10:26)
[2021-07-24] MEDS: PANTOPRAZOLE SODIUM 40 MG TAB PO SCH (10:26)
[2021-07-24] MEDS: ASPIRIN 81 MG TAB.CHEW PO SCH (10:27)
[2021-07-24] MEDS: hydrALAZINE HCL 25 MG TABLET PO SCH ×2 (10:27→20:59)
[2021-07-24] MEDS: POLYETHYLENE GLYCOL 3350, 17 GM/ POWD.PACK PO SCH (10:28)
[2021-07-24] MEDS: ENOXAPARIN SODIUM 100 MG/ML SYRINGE SUBCUT SCH ×2 (10:28→21:04)
[2021-07-24] MEDS: levETIRAcetam 1,000 MG in NS 100 ML IV SCH ×2 (10:30→20:56)
[2021-07-24 11:09] LABS: BILIRUBIN,URINE NEGATIVE (NEGATIVE); BLOOD, URINE 3+ (NEGATIVE); CLARITY/URINE CLOUDY (CLEAR); COLOR,URINE RED (YELLOW); GLUCOSE,URINE NEGATIVE (NEGATIVE); KETONES,URINE TRACE (NEGATIVE); LEUKOCYTE ESTERASE ,URINE TRACE (NEGATIVE); NITRITE, URINE POSITIVE (NEGATIVE); PROTEIN URINE 3+ (NEGATIVE)
[2021-07-24 11:31] VITALS: BP_SYST 149
[2021-07-24 12:37] LABS: BACTERIA,URINE RARE /HPF (None Seen); RBC,URINE >100 /HPF (0-3)
[2021-07-24] MEDS: D5NS 1,000 ML IV SCH (14:19)
[2021-07-24] MEDS: THIAMINE HCL 100 MG in NS 50 ML IV SCH (14:20)
[2021-07-24 15:30] VITALS: BP_SYST 139
[2021-07-24 20:00] VITALS: BP_SYST 129
[2021-07-25] VITALS: BP_SYST 121
[2021-07-25] MEDS: HYDROcodone/ACETAMIN 5-325 MG TAB (NORCO/ VICODIN) PO PRN ×3 (02:44→18:07)
[2021-07-25] MEDS: D5NS 1,000 ML IV SCH ×2 (06:08→16:05)
[2021-07-25 07:00] LABS: BASOPHILS # (AUTO) 0.1 K/uL (0.0-0.2); BASOPHILS % (AUTO) 0.9 % (0.0-2.0); EOSINOPHILS # (AUTO) 0.4 K/uL (0.0-0.4); EOSINOPHILS % (AUTO) 5.5 % (0.0-4.0); HEMOGLOBIN 12.3 g/dL (14.0-18.0); LYMPHOCYTES # (AUTO) 2.1 K/uL (1.0-5.5); MEAN CORPUSCULAR HEMOGLOBIN 30 pg (27-31); MEAN CORPUSCULAR HGB CONC 34 % (32-36); MEAN CORPUSCULAR VOLUME 89 fL (79.0-98.0); MONOCYTES # (AUTO) 0.5 K/uL (0.0-1.0); MONOCYTES % (AUTO) 6.1 % (1.7-9.3); NEUTROPHILS # (AUTO) 4.8 K/uL (1.8-7.7); NEUTROPHILS % (AUTO) 60.5 % (40.0-70.0); PLATELET COUNT (AUTO) 338 K/uL (130-430); RED BLOOD CELL COUNT(AUTO) 4.05 MIL/uL (4.2-6.2); RED CELL DISTRIBUTION WIDTH 13.2 % (9.0-15.0); WHITE BLOOD COUNT (AUTO) 7.9 K/uL (4.8-10.8)
[2021-07-25 08:00] VITALS: BP_SYST 121
[2021-07-25 08:18] LABS: ALBUMIN 2.4 g/dL (3.4-4.8); CALCIUM 8.4 mg/dL (8.4-11.0); CREATININE 0.82 mg/dL (0.55-1.30); POTASSIUM 3.6 mmol/L (3.5-5.1); TOTAL BILIRUBIN 0.3 mg/dL (0.0-1.0)
[2021-07-25] MEDS: ATORVASTATIN 20 MG TABLET PO SCH (08:51)
[2021-07-25] MEDS: PANTOPRAZOLE SODIUM 40 MG TAB PO SCH (08:51)
[2021-07-25] MEDS: ASPIRIN 81 MG TAB.CHEW PO SCH (08:51)
[2021-07-25] MEDS: hydrALAZINE HCL 25 MG TABLET PO SCH ×2 (08:52→21:33)
[2021-07-25] MEDS: POLYETHYLENE GLYCOL 3350, 17 GM/ POWD.PACK PO SCH (08:52)
[2021-07-25] MEDS: levETIRAcetam 1,000 MG in NS 100 ML IV SCH ×2 (08:53→21:32)
[2021-07-25] MEDS: ENOXAPARIN SODIUM 100 MG/ML SYRINGE SUBCUT SCH (09:00)
[2021-07-25 11:37] VITALS: BP_SYST 125
[2021-07-25] MEDS: THIAMINE HCL 100 MG in NS 50 ML IV SCH (13:20)
[2021-07-25] MEDS: metroNIDAZOLE 500 MG TABLET PO SCH ×2 (14:01→21:34)
[2021-07-25 15:27] VITALS: BP_SYST 130
[2021-07-25 20:00] VITALS: BP_SYST 125
[2021-07-25] MEDS ORDERED: SACCHAROMYCES BOULARDII 250 MG CAPSULE (FLORASTOR) PO SCH (21:00)
[2021-07-25] MEDS: LACTOBACILLUS RHAMNOSUS GG 1 CAP CAPSULE PO SCH (21:34)
[2021-07-26] MEDS: HYDROcodone/ACETAMIN 5-325 MG TAB (NORCO/ VICODIN) PO PRN ×2 (01:14→10:06)
[2021-07-26 01:35] VITALS: BP_SYST 130
[2021-07-26] MEDS: metroNIDAZOLE 500 MG TABLET PO SCH ×3 (06:40→22:12)
[2021-07-26 08:00] VITALS: BP_SYST 138
[2021-07-26 09:32] LABS: BASOPHILS # (AUTO) 0.1 K/uL (0.0-0.2); BASOPHILS % (AUTO) 0.6 % (0.0-2.0); EOSINOPHILS # (AUTO) 0.4 K/uL (0.0-0.4); HEMATOCRIT 38.1 % (36-54); LYMPHOCYTES # (AUTO) 1.8 K/uL (1.0-5.5); LYMPHOCYTES % (AUTO) 23.7 % (20.5-51.5); MEAN CORPUSCULAR HEMOGLOBIN 31 pg (27-31); MEAN CORPUSCULAR HGB CONC 34 % (32-36); MEAN CORPUSCULAR VOLUME 89 fL (79.0-98.0); MONOCYTES # (AUTO) 0.4 K/uL (0.0-1.0); MONOCYTES % (AUTO) 5.1 % (1.7-9.3); NEUTROPHILS # (AUTO) 5.1 K/uL (1.8-7.7); NEUTROPHILS % (AUTO) 65.6 % (40.0-70.0); PLATELET COUNT (AUTO) 342 K/uL (130-430); RED BLOOD CELL COUNT(AUTO) 4.27 MIL/uL (4.2-6.2); RED CELL DISTRIBUTION WIDTH 13.6 % (9.0-15.0); WHITE BLOOD COUNT (AUTO) 7.8 K/uL (4.8-10.8)
[2021-07-26] MEDS: POLYETHYLENE GLYCOL 3350, 17 GM/ POWD.PACK PO SCH (10:04)
[2021-07-26] MEDS: PANTOPRAZOLE SODIUM 40 MG TAB PO SCH (10:05)
[2021-07-26] MEDS: ASPIRIN 81 MG TAB.CHEW PO SCH (10:05)
[2021-07-26] MEDS: LevETIRAcetam 500 MG/5 ML UDC ORAL LIQUID PO SCH ×2 (10:05→22:11)
[2021-07-26] MEDS: LACTOBACILLUS RHAMNOSUS GG 1 CAP CAPSULE PO SCH ×2 (10:05→22:11)
[2021-07-26] MEDS: ATORVASTATIN 20 MG TABLET PO SCH (10:05)
[2021-07-26] MEDS: hydrALAZINE HCL 25 MG TABLET PO SCH ×2 (10:12→22:11)
[2021-07-26] MEDS: APIXABAN 2.5 MG TABLET PO SCH ×2 (10:21→22:15)
[2021-07-26 10:26] LABS: CALCIUM 8.5 mg/dL (8.4-11.0); CREATININE 0.87 mg/dL (0.55-1.30); POTASSIUM 3.6 mmol/L (3.5-5.1)
[2021-07-26 12:34] VITALS: BP_SYST 132
[2021-07-26] MEDS: THIAMINE HCL 100 MG in NS 50 ML IV SCH (13:41)
[2021-07-26 16:45] VITALS: BP_SYST 137
[2021-07-26 19:00] VITALS: BP_SYST 166
[2021-07-26 20:00] VITALS: BP_SYST 166
[2021-07-27 00:34] VITALS: BP_SYST 152
[2021-07-27 04:00] VITALS: BP_SYST 149
[2021-07-27] MEDS: metroNIDAZOLE 500 MG TABLET PO SCH ×3 (05:09→21:03)
[2021-07-27] MEDS: HYDROcodone/ACETAMIN 5-325 MG TAB (NORCO/ VICODIN) PO PRN ×3 (05:13→18:12)
[2021-07-27 07:30] LABS: BASOPHILS # (AUTO) 0.1 K/uL (0.0-0.2); EOSINOPHILS # (AUTO) 0.5 K/uL (0.0-0.4); EOSINOPHILS % (AUTO) 4.8 % (0.0-4.0); HEMATOCRIT 39.5 % (36-54); HEMOGLOBIN 13.4 g/dL (14.0-18.0); LYMPHOCYTES # (AUTO) 1.7 K/uL (1.0-5.5); LYMPHOCYTES % (AUTO) 18.3 % (20.5-51.5); MEAN CORPUSCULAR HEMOGLOBIN 30 pg (27-31); MEAN CORPUSCULAR HGB CONC 34 % (32-36); MEAN CORPUSCULAR VOLUME 89 fL (79.0-98.0); MONOCYTES # (AUTO) 0.4 K/uL (0.0-1.0); MONOCYTES % (AUTO) 4.4 % (1.7-9.3); NEUTROPHILS # (AUTO) 6.7 K/uL (1.8-7.7); NEUTROPHILS % (AUTO) 71.5 % (40.0-70.0); PLATELET COUNT (AUTO) 356 K/uL (130-430); RED BLOOD CELL COUNT(AUTO) 4.42 MIL/uL (4.2-6.2); RED CELL DISTRIBUTION WIDTH 13.5 % (9.0-15.0); WHITE BLOOD COUNT (AUTO) 9.4 K/uL (4.8-10.8)
[2021-07-27 07:47] LABS: ALBUMIN 2.8 g/dL (3.4-4.8); CALCIUM 8.6 mg/dL (8.4-11.0); CREATININE 0.89 mg/dL (0.55-1.30); POTASSIUM 3.7 mmol/L (3.5-5.1); TOTAL BILIRUBIN 0.4 mg/dL (0.0-1.0)
[2021-07-27 08:00] VITALS: BP_SYST 164
[2021-07-27] MEDS: LevETIRAcetam 500 MG/5 ML UDC ORAL LIQUID PO SCH ×2 (08:54→21:07)
[2021-07-27] MEDS: POLYETHYLENE GLYCOL 3350, 17 GM/ POWD.PACK PO SCH (08:54)
[2021-07-27] MEDS: PANTOPRAZOLE SODIUM 40 MG TAB PO SCH (08:55)
[2021-07-27] MEDS: ATORVASTATIN 20 MG TABLET PO SCH (08:55)
[2021-07-27] MEDS: LACTOBACILLUS RHAMNOSUS GG 1 CAP CAPSULE PO SCH ×2 (08:55→21:03)
[2021-07-27] MEDS: ASPIRIN 81 MG TAB.CHEW PO SCH (08:55)
[2021-07-27] MEDS: APIXABAN 2.5 MG TABLET PO SCH ×2 (08:56→21:06)
[2021-07-27] MEDS: hydrALAZINE HCL 25 MG TABLET PO SCH ×2 (09:00→21:02)
[2021-07-27 11:32] VITALS: BP_SYST 125
[2021-07-27 12:10] LABS: ERYTHROCYTE SEDIMENTATION RATE 67 MM/HR (0-15)
[2021-07-27 13:31] LABS: C-REACTIVE PROTEIN QUANT 1.3 mg/dL (0-0.5)
[2021-07-27] MEDS: THIAMINE HCL 100 MG in NS 50 ML IV SCH (14:05)
[2021-07-27 15:47] VITALS: BP_SYST 125
[2021-07-27 20:00] VITALS: BP_SYST 153
[2021-07-28] VITALS: BP_SYST 115
[2021-07-28] MEDS: metroNIDAZOLE 500 MG TABLET PO SCH (06:23)
[2021-07-28] MEDS: HYDROcodone/ACETAMIN 5-325 MG TAB (NORCO/ VICODIN) PO PRN ×2 (06:29→12:29)
[2021-07-28 08:00] VITALS: BP_SYST 138
[2021-07-28] MEDS: LevETIRAcetam 500 MG/5 ML UDC ORAL LIQUID PO SCH (10:02)
[2021-07-28] MEDS: POLYETHYLENE GLYCOL 3350, 17 GM/ POWD.PACK PO SCH (10:02)
[2021-07-28] MEDS: ASPIRIN 81 MG TAB.CHEW PO SCH (10:03)
[2021-07-28] MEDS: LACTOBACILLUS RHAMNOSUS GG 1 CAP CAPSULE PO SCH (10:03)
[2021-07-28] MEDS: ATORVASTATIN 20 MG TABLET PO SCH (10:03)
[2021-07-28] MEDS: hydrALAZINE HCL 25 MG TABLET PO SCH (10:03)
[2021-07-28] MEDS: PANTOPRAZOLE SODIUM 40 MG TAB PO SCH (10:04)
[2021-07-28] MEDS: APIXABAN 2.5 MG TABLET PO SCH (10:05)
[2021-07-28 12:29] VITALS: BP_SYST 110
[2021-07-28 16:48] VITALS: BP_SYST 111
== END 2021-07-28 17:30 | DRG 64 ==
LOC: SED 11:28 → STU 13:49 → SIC 07-09 10:42 → STU 07-16 04:28 → SMU 07-22 09:58
PROVIDERS: ADMIT Internal Medicine Hospice and Palliative Medicine; ATTEND Internal Medicine Hospice and Palliative Medicine
PROC: 05HY33Z Insertion of Infusion Device into Upper Vein, Percutaneous Approach (ICD-10-PCS; principal; 2021-07-23)
PROC: B54MZZA Ultrasonography of Right Upper Extremity Veins, Guidance (ICD-10-PCS; 2021-07-23)
DX: I63.232 Cerebral infarction due to unspecified occlusion or stenosis of left carotid arteries (principal); A41.9 Sepsis, unspecified organism; E43 Unspecified severe protein-calorie malnutrition; G81.94 Hemiplegia, unspecified affecting left nondominant side; A04.72 Enterocolitis due to Clostridium difficile, not specified as recurrent; I82.432 Acute embolism and thrombosis of left popliteal vein; F17.210 Nicotine dependence, cigarettes, uncomplicated; D69.6 Thrombocytopenia, unspecified; I10 Essential (primary) hypertension; Z20.822 Contact with and (suspected) exposure to COVID-19; R13.10 Dysphagia, unspecified; R29.810 Facial weakness; Z79.01 Long term (current) use of anticoagulants; Z82.49 Family history of ischemic heart disease and other diseases of the circulatory system
CPT/HCPCS: 36415; 36600; 70450-TC; 70460-TC; 70551; 71045; 76376; 80048; 80053; 80061; 81000; 81403; 81407; 81479; 82803-TC; 82962; 83735; 83880; 84100; 84478; 84484; 85025; 85300; 85306; 85610-TC; 85651-TC; 85730-TC; 86140; 86256; 87081; 87230-TC; 92526-GN; 92610-GN; 93005; 93306; 93880; 93970; 97110-GO; 97110-GP; 97112-GO; 97116-GP; 97163-GP; 97530-GO; 97530-GP; 97535-GO; 99285; C9113; G0378; J0360; J0461; J0610; J1170; J1650; J1815; J1953; J2150; J2270; J3411; J3475; J3480; J3490; Q9967